=== PATIENT | male | born 2000 | race African-American/Black ===

== ENCOUNTER 2018-01-12 09:41 | Emergency (ER) | payer OTHER ==
[~2018-01-12] VITALS: Ht 162.6 cm; Wt 56.7 kg
== END 2018-01-12 12:50 | disposition home or self-care (01) ==
LOC: ED 09:41
DX: M54.2 Cervicalgia (principal); M79.1 Myalgia; V59.50XA Passenger in pick-up truck or van injured in collision with unspecified motor vehicles in traffic accident, initial encounter
CPT/HCPCS: 99283

== ENCOUNTER 2018-01-24 13:27 | Emergency (ER) | payer OTHER ==
[~2018-01-24] VITALS: Ht 154.9 cm; Wt 63.5 kg
== END 2018-01-24 14:52 | disposition home or self-care (01) ==
LOC: ED 13:27
DX: M54.2 Cervicalgia (principal)
CPT/HCPCS: 99281